=== PATIENT | female | born 1930 | race Caucasian/White ===

== ENCOUNTER 2017-04-02 01:05 | Inpatient (IN) | payer MEDICARE, BC ==
[~2017-04-02] VITALS: Ht 167.6 cm; Wt 56.8 kg
[2017-04-02] VITALS (10 sets, daily range): BP systolic 102–134; BP diastolic 47–78; PULSE 87–112; TEMP 97.3–98.2
[~2017-04-02 01:05] MED LIST: NORCO 325 MG-51 TAB PO; ZOFRAN ODT4 MG PO
[2017-04-02 01:40] LABS: BASO # 0.1 (0.0-0.2); BASO % 0.5 % (0.0-2.0); EOS # 0.3 (0.0-0.7); EOS % 3.1 % (0-4.0); GRAN # 6.1 (1.4-6.5); GRAN % 66.2 % (42.2-75.2); HEMOGLOBIN 12.2 g/dl (12.5-16.0); LYMPH # 2.1 (1.2-3.4); LYMPH % 22.4 % (20.0-51.0); MEAN CELL VOLUME 92 fl (80.0-100.0); MEAN CORPUSCULAR HEMOGLOBIN 31 pg (27.0-31.0); MEAN CORPUSCULAR HGB CONC 34 g/dl (33.0-37.0); MEAN PLATELET VOLUME 9.2 fl (7.4-10.4); MONO # 0.7 (0.1-0.6); MONO % 7.2 % (1.7-9.3); PLATELET COUNT 195 K/mm3 (130-400); RED BLOOD COUNT 3.97 M/mm3 (4.10-5.30); REDCELL DISTRIBUTION WIDTH-CV 12.6 % (11.5-14.5); WHITE BLOOD COUNT 9.3 K/mm3 (4.8-10.8)
[2017-04-02 01:44] LABS: HEMATOCRIT 36.4 % (37.0-47.0)
[2017-04-02] MEDS ORDERED: ULTRAM 50MG TAB50 MG PO (01:46)
[2017-04-02] MEDS ORDERED: REMERON30 MG PO (01:47)
[2017-04-02] MEDS ORDERED: MOBIC15 MG PO (01:48)
[2017-04-02] MEDS ORDERED: WELLBUTRIN SR150 M1 PO (01:48)
[2017-04-02] MEDS ORDERED: INDERAL 10MG10 MG PO (01:49)
[2017-04-02] MEDS ORDERED: ZOCOR 40MG40 MG PO (01:49)
[2017-04-02] MEDS ORDERED: MELAT3MGTAB PO (01:50)
[2017-04-02] MEDS ORDERED: COLACE 100100 MG/CAP PO (01:51)
[2017-04-02] MEDS ORDERED: TYLENOL 500MG500 MG PO (01:51)
[2017-04-02 01:52] LABS: ADJUSTED CALCIUM 9.2 mg/dL (8.4-10.2); ALBUMIN 4.1 gm/dL (3.5-5.0); BILIRUBIN,TOTAL 0.4 mg/dL (0.0-1.0); CALCIUM 9.3 mg/dL (8.4-10.2); CREATININE, serum 0.99 mg/dL (0.52-1.25); POTASSIUM 4.1 mmol/L (3.4-5.0); TOTAL PROTEIN 7.2 gm/dL (6.4-8.2)
[2017-04-02] MEDS ORDERED: BIOTIN5000 MCG PO (01:52)
[2017-04-02] MEDS ORDERED: MULTIPLE VITAMI1 TA5 PO (01:53)
[2017-04-02] MEDS ORDERED: ASPIRIN 81M81 MG/TA2 PO (01:56)
[2017-04-02] MEDS ORDERED: LUTEIN6 MG PO (01:57)
[2017-04-02] MEDS ORDERED: NIACIN FLUSH F400 MG PO (01:58)
[2017-04-02] MEDS ORDERED: VITAMIN C500 MG PO (01:59)
[2017-04-02] MEDS ORDERED: FISH OIL 500 M1 EAC1 PO (02:00)
[2017-04-02] MEDS ORDERED: CRANBERRY450 MG PO (02:04)
[2017-04-02] MEDS ORDERED: UROCIT-K 5540 MG/TAB PO (02:04)
[2017-04-02] MEDS ORDERED: TYROSINE PO (02:04)
[2017-04-02] MEDS ORDERED: GLUCOSAMINE/CHO1 CA1 PO (02:05)
[2017-04-02] MEDS ORDERED: GINKGO60 MG PO (02:06)
[2017-04-02] MEDS ORDERED: VITAMIN D31000 I1 PO (02:07)
[2017-04-02] MEDS ORDERED: MASON NATURAL600 MG PO (02:07)
[2017-04-02] MEDS ORDERED: FOLIC ACID 11 MG/TA1 PO (02:07)
[2017-04-02 02:54] LABS: PROTHROMBIN TIME 10.7 SECONDS (9.7-12.8)
[2017-04-02 07:56] LABS: PH 5 (5-8); SQUAMOUS EPITHELIAL 0-2 /hpf; URINE APPEARANCE Clear; URINE BACTERIA None Seen /hpf; URINE BILIRUBIN Negative (NEGATIVE); URINE BLOOD 2+ (NEGATIVE); URINE COLOR Yellow; URINE GLUCOSE Negative (NEGATIVE); URINE KETONE 1+ (NEGATIVE); URINE RBC >50 /hpf; URINE UROBILINOGEN Negative (NEGATIVE)
[2017-04-03 02:48] VITALS: BP 105/50; PULSE 101; TEMP 98
[2017-04-03 04:40] VITALS: BP 94/51; PULSE 93; TEMP 98.4
[2017-04-03 07:24] LABS: HEMOGLOBIN 8.4 g/dl (12.5-16.0)
[2017-04-03 10:05] LABS: BASO # 0.1 (0.0-0.2); BASO % 0.6 % (0.0-2.0); EOS # 0.3 (0.0-0.7); EOS % 2.6 % (0-4.0); GRAN # 7.8 (1.4-6.5); GRAN % 77.2 % (42.2-75.2); LYMPH # 1.2 (1.2-3.4); LYMPH % 11.8 % (20.0-51.0); MEAN CELL VOLUME 95 fl (80.0-100.0); MEAN CORPUSCULAR HGB CONC 32 g/dl (33.0-37.0); MEAN PLATELET VOLUME 9.5 fl (7.4-10.4); MONO # 0.7 (0.1-0.6); MONO % 7.4 % (1.7-9.3); PLATELET COUNT 148 K/mm3 (130-400); RED BLOOD COUNT 3.13 M/mm3 (4.10-5.30); REDCELL DISTRIBUTION WIDTH-CV 12.8 % (11.5-14.5)
[2017-04-03 10:06] LABS: HEMATOCRIT 29.8 % (37.0-47.0); HEMOGLOBIN 9.5 g/dl (12.5-16.0); MEAN CORPUSCULAR HEMOGLOBIN 30 pg (27.0-31.0)
[2017-04-03 11:43] VITALS: BP 108/42; PULSE 56; TEMP 97.1
[2017-04-03 14:28] VITALS: BP 120/45; PULSE 95; TEMP 98.2
[2017-04-03 17:52] VITALS: BP 99/32; PULSE 84; TEMP 97.6
[2017-04-03 21:48] VITALS: BP 106/41; PULSE 87; TEMP 97.7
[2017-04-04 05:14] VITALS: BP 127/55; PULSE 94; TEMP 98.1
[2017-04-04 07:29] LABS: BASO % 0.3 % (0.0-2.0); EOS # 0.3 (0.0-0.7); EOS % 2.9 % (0-4.0); GRAN % 79.2 % (42.2-75.2); LYMPH # 0.9 (1.2-3.4); LYMPH % 9.8 % (20.0-51.0); MEAN CELL VOLUME 94 fl (80.0-100.0); MEAN CORPUSCULAR HGB CONC 33 g/dl (33.0-37.0); MEAN PLATELET VOLUME 9.9 fl (7.4-10.4); MONO # 0.7 (0.1-0.6); MONO % 7.3 % (1.7-9.3); PLATELET COUNT 112 K/mm3 (130-400); RED BLOOD COUNT 2.52 M/mm3 (4.10-5.30); REDCELL DISTRIBUTION WIDTH-CV 12.9 % (11.5-14.5); WHITE BLOOD COUNT 8.9 K/mm3 (4.8-10.8)
[2017-04-04 07:30] LABS: HEMATOCRIT 23.8 % (37.0-47.0); HEMOGLOBIN 7.8 g/dl (12.5-16.0); MEAN CORPUSCULAR HEMOGLOBIN 31 pg (27.0-31.0)
[2017-04-04 07:39] LABS: CALCIUM 8.6 mg/dL (8.4-10.2); CREATININE, serum 0.68 mg/dL (0.52-1.25); POTASSIUM 3.6 mmol/L (3.4-5.0)
[2017-04-04 09:54] VITALS: BP 98/42; PULSE 81; TEMP 97.3
[2017-04-04 14:41] VITALS: BP 109/51; PULSE 86; TEMP 98
[2017-04-04 16:01] LABS: HEMATOCRIT 23.9 % (37.0-47.0); HEMOGLOBIN 7.8 g/dl (12.5-16.0)
[2017-04-04 18:07] VITALS: BP 101/47; PULSE 95; TEMP 98.4
[2017-04-04 20:50] VITALS: BP 156/81; PULSE 71; TEMP 98
[2017-04-05] VITALS (8 sets, daily range): BP systolic 109–124; BP diastolic 44–60; PULSE 78–96; TEMP 97.3–98.1
[2017-04-05 07:12] LABS: BASO % 0.3 % (0.0-2.0); EOS # 0.2 (0.0-0.7); EOS % 2.5 % (0-4.0); GRAN # 6.8 (1.4-6.5); GRAN % 78.3 % (42.2-75.2); HEMATOCRIT 21.4 % (37.0-47.0); LYMPH # 0.9 (1.2-3.4); MEAN CELL VOLUME 95 fl (80.0-100.0); MEAN CORPUSCULAR HEMOGLOBIN 31 pg (27.0-31.0); MEAN CORPUSCULAR HGB CONC 33 g/dl (33.0-37.0); MONO # 0.7 (0.1-0.6); MONO % 8.3 % (1.7-9.3); PLATELET COUNT 118 K/mm3 (130-400); RED BLOOD COUNT 2.26 M/mm3 (4.10-5.30); REDCELL DISTRIBUTION WIDTH-CV 12.7 % (11.5-14.5); WHITE BLOOD COUNT 8.7 K/mm3 (4.8-10.8)
[2017-04-05 07:23] LABS: CALCIUM 8.3 mg/dL (8.4-10.2); CREATININE, serum 0.69 mg/dL (0.52-1.25); POTASSIUM 3.5 mmol/L (3.4-5.0)
[2017-04-05 10:01] LABS: RETIC % 2.2 % (0.5-3.52)
[2017-04-05 10:47] LABS: FERRITIN 208 ng/mL (11-264)
[2017-04-05 11:21] LABS: TOTAL IRON BINDING CAPACITY 218 ug/dL (265-497)
[2017-04-05] MEDS ORDERED: FERROUS SU325 MG/TAB PO (13:00)
[2017-04-05] MEDS ORDERED: XARELTO10 MG PO (13:01)
[2017-04-05] MEDS ORDERED: INDERAL 10MG10 MG PO (13:03)
[2017-04-05] MEDS ORDERED: MIRALAX PA17 GM/Dose PO (21:03)
[2017-04-05] MEDS ORDERED: ZOFRAN 4MG T4 MG/TAB PO (21:05)
[2017-04-05] MEDS ORDERED: PROTONIX 40MG T40 MG PO (21:07)
[2017-04-05] MEDS ORDERED: DULCOLAX S10 MG/SUPP RC (21:10)
[2017-04-05] MEDS ORDERED: OSCAL 500 TAB500 MG PO (21:13)
[2017-04-05] MEDS ORDERED: CLARITIN 1010 MG/TAB PO (21:16)
[2017-04-05] MEDS ORDERED: LIPITOR20 MG PO (21:18)
[2017-04-05] MEDS ORDERED: SENOKOT S 50 MG1 TAB PO (21:21)
[2017-04-05] MEDS ORDERED: [UNRECOGNIZED DRUG - OTHER] MM (21:29)
[2017-04-05] MEDS ORDERED: AMBIEN 5MG TABLE5 MG PO (21:35)
[2017-04-05] MEDS ORDERED: TYLENOL 325MG325 MG PO (21:38)
[2017-04-05] MEDS ORDERED: PHENERGAN25 MG/ML IV (21:46)
== END 2017-04-05 16:00 | DRG 481 ==
LOC: COL.ER 01:05 → SURG 02:11
PROVIDERS: Nurse Practitioner; Nurse Practitioner Family; Orthopaedic Surgery; Physician Assistant
PROC: 0QS636Z Reposition Right Upper Femur with Intramedullary Internal Fixation Device, Percutaneous Approach (ICD-10-PCS; principal; 2017-04-02 14:00)
DX: S72.141A Displaced intertrochanteric fracture of right femur, initial encounter for closed fracture (principal); D62 Acute posthemorrhagic anemia; Z66 Do not resuscitate; W18.30XA Fall on same level, unspecified, initial encounter; Z85.3 Personal history of malignant neoplasm of breast; Z87.891 Personal history of nicotine dependence; R25.1 Tremor, unspecified
CPT/HCPCS: 99223-AI; 99233-AI; 99239; A9284; C1713; C9113; J1100; J2270; J2405; J2550; J2704; J2765; J3010; J7030; J7120; P9016

== ENCOUNTER 2017-04-05 15:15 | Inpatient (IN) | payer MEDICARE, BC ==
[~2017-04-05] VITALS: Ht 160 cm; Wt 50.6 kg
[~2017-04-05 15:15] MED LIST changes: +ASPIRIN 81M81 MG/TA2 PO; +BIOTIN5000 MCG PO; +COLACE 100100 MG/CAP PO; +CRANBERRY450 MG PO; +FERROUS SU325 MG/TAB PO; +FISH OIL 500 M1 EAC1 PO; +FOLIC ACID 11 MG/TA1 PO; +GINKGO60 MG PO; +GLUCOSAMINE/CHO1 CA1 PO; +INDERAL 10MG10 MG PO; +LUTEIN6 MG PO; +MASON NATURAL600 MG PO; +MELAT3MGTAB PO; +MOBIC15 MG PO; +MULTIPLE VITAMI1 TA5 PO; +NIACIN FLUSH F400 MG PO; +REMERON30 MG PO; +TYLENOL 500MG500 MG PO; +TYROSINE PO; +ULTRAM 50MG TAB50 MG PO; +UROCIT-K 5540 MG/TAB PO; +VITAMIN C500 MG PO; +VITAMIN D31000 I1 PO; +WELLBUTRIN SR150 M1 PO; +XARELTO10 MG PO; +ZOCOR 40MG40 MG PO
[2017-04-05 16:00] VITALS: BP 134/52; PULSE 95; TEMP 98.3
[2017-04-05 17:14] VITALS: BP 134/52; PULSE 95; TEMP 98.3
[2017-04-05] MEDS ORDERED: MIRALAX PA17 GM/Dose PO (21:03)
[2017-04-05] MEDS ORDERED: ZOFRAN 4MG T4 MG/TAB PO (21:05)
[2017-04-05] MEDS ORDERED: PROTONIX 40MG T40 MG PO (21:07)
[2017-04-05] MEDS ORDERED: DULCOLAX S10 MG/SUPP RC (21:10)
[2017-04-05] MEDS ORDERED: OSCAL 500 TAB500 MG PO (21:13)
[2017-04-05] MEDS ORDERED: CLARITIN 1010 MG/TAB PO (21:16)
[2017-04-05] MEDS ORDERED: LIPITOR20 MG PO (21:18)
[2017-04-05] MEDS ORDERED: SENOKOT S 50 MG1 TAB PO (21:21)
[2017-04-05] MEDS ORDERED: [UNRECOGNIZED DRUG - OTHER] MM (21:29)
[2017-04-05] MEDS ORDERED: AMBIEN 5MG TABLE5 MG PO (21:35)
[2017-04-05] MEDS ORDERED: TYLENOL 325MG325 MG PO (21:38)
[2017-04-05] MEDS ORDERED: PHENERGAN25 MG/ML IV (21:46)
[2017-04-06 06:01] VITALS: BP 124/51; PULSE 89; TEMP 98.7
[2017-04-06 12:49] LABS: BASO % 0.4 % (0.0-2.0); EOS # 0.3 (0.0-0.7); EOS % 2.2 % (0-4.0); GRAN # 9.6 (1.4-6.5); GRAN % 84.3 % (42.2-75.2); LYMPH # 0.8 (1.2-3.4); LYMPH % 7.4 % (20.0-51.0); MEAN CELL VOLUME 93 fl (80.0-100.0); MEAN CORPUSCULAR HGB CONC 33 g/dl (33.0-37.0); MEAN PLATELET VOLUME 9.6 fl (7.4-10.4); MONO # 0.6 (0.1-0.6); MONO % 5.1 % (1.7-9.3); PLATELET COUNT 195 K/mm3 (130-400); RED BLOOD COUNT 3.27 M/mm3 (4.10-5.30); WHITE BLOOD COUNT 11.4 K/mm3 (4.8-10.8)
[2017-04-06 12:50] LABS: HEMATOCRIT 30.5 % (37.0-47.0); HEMOGLOBIN 10.1 g/dl (12.5-16.0); MEAN CORPUSCULAR HEMOGLOBIN 31 pg (27.0-31.0)
[2017-04-06 12:59] LABS: CALCIUM 9.3 mg/dL (8.4-10.2); CREATININE, serum 0.73 mg/dL (0.52-1.25); POTASSIUM 3.6 mmol/L (3.4-5.0)
[2017-04-06 16:19] VITALS: BP 109/44; PULSE 102; TEMP 97.7
[2017-04-07 06:45] VITALS: BP 137/82; PULSE 96; TEMP 99
[2017-04-07 16:17] VITALS: BP 110/51; PULSE 104; TEMP 97.7
[2017-04-08 05:40] VITALS: BP 128/55; PULSE 82; TEMP 98.5
[2017-04-08 07:42] LABS: HEMATOCRIT 30.7 % (37.0-47.0); HEMOGLOBIN 9.9 g/dl (12.5-16.0)
[2017-04-08 17:13] VITALS: BP 104/54; PULSE 94; TEMP 97.6
[2017-04-09 06:04] VITALS: BP 114/38; PULSE 92; TEMP 98.1
[2017-04-09 18:14] VITALS: BP 101/52; PULSE 93; TEMP 98.5
[2017-04-10 03:50] VITALS: BP 133/48; PULSE 86; TEMP 97.8
[2017-04-10 19:22] VITALS: BP 128/64; PULSE 92; TEMP 97.9
[2017-04-11 06:00] VITALS: BP 132/55; PULSE 87; TEMP 97.9
[2017-04-11 16:00] VITALS: BP 113/48; PULSE 90; TEMP 97
[2017-04-12 05:24] VITALS: BP 124/54; PULSE 96; TEMP 97.6
[2017-04-12 18:15] VITALS: BP 102/55; PULSE 93; TEMP 98
[2017-04-13 05:13] VITALS: BP 135/53; PULSE 82; TEMP 97.6
[2017-04-13 16:58] VITALS: BP 104/43; PULSE 87; TEMP 97.5
[2017-04-14 04:14] VITALS: BP 131/57; PULSE 86; TEMP 98.1
[2017-04-14 16:54] VITALS: BP 123/47; PULSE 87; TEMP 98.2
[2017-04-14 20:30] VITALS: BP 121/53; PULSE 89; TEMP 98.4
[2017-04-15 04:34] VITALS: BP 123/52; PULSE 78; TEMP 98.6
[2017-04-15 07:20] LABS: HEMATOCRIT 34.2 % (37.0-47.0); HEMOGLOBIN 10.6 g/dl (12.5-16.0)
[2017-04-15 16:15] VITALS: BP 116/45; PULSE 86; TEMP 97.6
[2017-04-16 05:58] VITALS: BP 124/57; PULSE 92; TEMP 97.6
[2017-04-16 18:30] VITALS: BP 122/55; PULSE 92; TEMP 97.5
[2017-04-17 06:23] VITALS: BP 145/60; PULSE 80; TEMP 97.4
[2017-04-17 18:43] VITALS: BP 148/87; PULSE 75; TEMP 98.4
[2017-04-18 05:02] VITALS: BP 111/47; PULSE 75; TEMP 97.9
[2017-04-18 16:06] VITALS: BP 110/51; PULSE 85; TEMP 98.4
[2017-04-19 03:09] VITALS: BP 146/73; PULSE 88; TEMP 98.8
[2017-04-19 04:59] VITALS: BP 131/62; PULSE 82; TEMP 98.1
[2017-04-19 16:35] VITALS: BP 127/55; PULSE 90; TEMP 98.4
[2017-04-20 04:35] VITALS: BP 125/54; PULSE 78; TEMP 97.8
[2017-04-20 17:09] VITALS: BP 120/49; PULSE 81; TEMP 98
[2017-04-21 05:11] VITALS: BP 141/56; PULSE 83; TEMP 97.7
[2017-04-21 18:10] VITALS: BP 118/65; PULSE 89; TEMP 97.6
[2017-04-22 05:10] VITALS: BP 156/63; PULSE 77; TEMP 98.5
[2017-04-22 16:23] VITALS: BP 122/55; PULSE 82; TEMP 98.2
[2017-04-23 05:59] VITALS: BP 145/60; PULSE 84; TEMP 98
[2017-04-23 15:09] VITALS: BP 110/46; PULSE 87; TEMP 98.2
[2017-04-24 05:56] VITALS: BP 149/66; PULSE 80; TEMP 97.9
[2017-04-24] MEDS ORDERED: [UNRECOGNIZED DRUG - OTHER] TP (09:06)
[2017-04-24] MEDS ORDERED: FERROUS SU325 MG/TAB PO (09:08)
[2017-04-24] MEDS ORDERED: XARELTO10 MG PO (09:08)
[2017-04-24] MEDS ORDERED: ULTRAM 50MG TAB50 MG PO (09:08)
== END 2017-04-24 13:15 | disposition home health service (06) | DRG 561 ==
PROVIDERS: Family Medicine; Internal Medicine
DX: S72.141D Displaced intertrochanteric fracture of right femur, subsequent encounter for closed fracture with routine healing (principal); Z85.3 Personal history of malignant neoplasm of breast; Z87.891 Personal history of nicotine dependence; G25.0 Essential tremor; Z66 Do not resuscitate; D50.0 Iron deficiency anemia secondary to blood loss (chronic); W18.30XD Fall on same level, unspecified, subsequent encounter
CPT/HCPCS: 99222-AI; 99232-AI; 99239

== ENCOUNTER → 2018-02-14 | Outpatient (CLI) | payer MEDICARE, BC ==
[~2018-02-14] MED LIST changes: +AMBIEN 5MG TABLE5 MG PO; +CLARITIN 1010 MG/TAB PO; +DULCOLAX S10 MG/SUPP RC; +LIPITOR20 MG PO; +MIRALAX PA17 GM/Dose PO; +OSCAL 500 TAB500 MG PO; +PHENERGAN25 MG/ML IV; +PROTONIX 40MG T40 MG PO; +SENOKOT S 50 MG1 TAB PO; +TYLENOL 325MG325 MG PO; +ZOFRAN 4MG T4 MG/TAB PO; +[UNRECOGNIZED DRUG - OTHER] MM; +[UNRECOGNIZED DRUG - OTHER] TP
== END ==
LOC: MC.RAD 14:00
DX: Z12.31 Encounter for screening mammogram for malignant neoplasm of breast (principal); Z85.3 Personal history of malignant neoplasm of breast; Z98.890 Other specified postprocedural states

== ENCOUNTER 2018-09-24 14:30 | Emergency (ER) | payer MEDICARE, BC ==
[~2018-09-24] VITALS: Ht 160 cm; Wt 52.3 kg
[2018-09-24 14:34] VITALS: TEMP 97.4
[2018-09-24 15:13] LABS: BASO % 0.2 % (0.0-2.0); EOS % 0.1 % (0-4.0); GRAN % 93.2 % (42.2-75.2); HEMATOCRIT 39.4 % (37.0-47.0); HEMOGLOBIN 13.2 g/dl (12.5-16.0); LYMPH # 0.7 (1.2-3.4); LYMPH % 3.7 % (20.0-51.0); MEAN CELL VOLUME 89 fl (80.0-100.0); MEAN CORPUSCULAR HEMOGLOBIN 30 pg (27.0-31.0); MEAN CORPUSCULAR HGB CONC 34 g/dl (33.0-37.0); MEAN PLATELET VOLUME 8.9 fl (7.4-10.4); MONO # 0.4 (0.1-0.6); MONO % 2.1 % (1.7-9.3); PLATELET COUNT 256 K/mm3 (130-400); RED BLOOD COUNT 4.42 M/mm3 (4.10-5.30); REDCELL DISTRIBUTION WIDTH-CV 12.8 % (11.5-14.5)
[2018-09-24 15:25] LABS: BILIRUBIN,TOTAL 0.3 mg/dL (0.0-1.0); C-REACTIVE PROTEIN 0.8 mg/dL (0.0-0.9); CALCIUM 9.4 mg/dL (8.4-10.2); CREATININE, serum 1.05 (0.52-1.25); POTASSIUM 4.2 mmol/L (3.4-5.0); TOTAL PROTEIN 7.8 gm/dL (6.4-8.2)
[2018-09-24 17:41] LABS: COLLECTION METHOD CLEAN CATCH
[2018-09-24 17:47] LABS: PH 7 (5-8); SQUAMOUS EPITHELIAL 0-2 /hpf; URINE APPEARANCE Clear; URINE BACTERIA None Seen /hpf; URINE BILIRUBIN Negative (NEGATIVE); URINE BLOOD Negative (NEGATIVE); URINE COLOR Yellow; URINE GLUCOSE Negative (NEGATIVE); URINE KETONE 1+ (NEGATIVE); URINE LEUKOCYTE ESTERASE Negative (NEGATIVE); URINE NITRATE Negative (NEGATIVE); URINE PROTEIN(semi-quant) Negative (NEGATIVE); URINE UROBILINOGEN Negative (NEGATIVE)
[2018-09-24] MEDS ORDERED: CEFTIN 250250 MG/TAB PO (18:08)
[2018-09-24 18:40] VITALS: BP 98/70; PULSE 88
== END 2018-09-24 18:40 | disposition home or self-care (01) ==
LOC: COL.ER 14:30
PROVIDERS: Emergency Medicine
DX: N20.1 Calculus of ureter (principal); K21.9 Gastro-esophageal reflux disease without esophagitis; E78.5 Hyperlipidemia, unspecified; Z90.89 Acquired absence of other organs; Z90.49 Acquired absence of other specified parts of digestive tract; Z90.710 Acquired absence of both cervix and uterus; Z85.3 Personal history of malignant neoplasm of breast
CPT/HCPCS: A4216; J0696; J2405; J2550; J7030; Q9967

== ENCOUNTER 2019-02-06 10:44 | Emergency (ER) | payer MEDICARE, BC ==
[~2019-02-06] VITALS: Ht 160 cm; Wt 53.6 kg
[~2019-02-06 10:44] MED LIST changes: +CEFTIN 250250 MG/TAB PO
[2019-02-06 11:16] VITALS: TEMP 97.6
[2019-02-06 12:47] LABS: BASO % 0.5 % (0.0-2.0); EOS # 0.1 (0.0-0.7); EOS % 1.3 % (0-4.0); GRAN # 5.7 (1.4-6.5); GRAN % 76.3 % (42.2-75.2); HEMATOCRIT 41.9 % (37.0-47.0); HEMOGLOBIN 13.9 g/dl (12.5-16.0); LYMPH % 13.6 % (20.0-51.0); MEAN CELL VOLUME 90 fl (80.0-100.0); MEAN CORPUSCULAR HEMOGLOBIN 30 pg (27.0-31.0); MEAN CORPUSCULAR HGB CONC 33 g/dl (33.0-37.0); MEAN PLATELET VOLUME 9.3 fl (7.4-10.4); MONO # 0.6 (0.1-0.6); MONO % 7.9 % (1.7-9.3); PLATELET COUNT 246 K/mm3 (130-400); RED BLOOD COUNT 4.65 M/mm3 (4.10-5.30); REDCELL DISTRIBUTION WIDTH-CV 13.2 % (11.5-14.5)
[2019-02-06 12:57] LABS: ALBUMIN 4.3 gm/dL (3.5-5.0); BILIRUBIN,TOTAL 0.4 mg/dL (0.0-1.0); C-REACTIVE PROTEIN 0.7 mg/dL (0.0-0.9); CALCIUM 9.7 mg/dL (8.4-10.2); CREATININE, serum 0.78 (0.52-1.25); POTASSIUM 4.1 mmol/L (3.4-5.0)
[2019-02-06 13:11] LABS: COLLECTION METHOD CLEAN CATCH
[2019-02-06 13:17] LABS: PH 6 (5-8); SQUAMOUS EPITHELIAL 0-2 /hpf; URINE APPEARANCE Clear; URINE BACTERIA None Seen /hpf; URINE BILIRUBIN Negative (NEGATIVE); URINE BLOOD 1+ (NEGATIVE); URINE COLOR Straw; URINE GLUCOSE Negative (NEGATIVE); URINE KETONE Negative (NEGATIVE); URINE LEUKOCYTE ESTERASE Negative (NEGATIVE); URINE NITRATE Negative (NEGATIVE); URINE PROTEIN(semi-quant) Negative (NEGATIVE); URINE UROBILINOGEN Negative (NEGATIVE)
[2019-02-06 15:30] VITALS: BP 149/75; PULSE 82
== END 2019-02-06 15:30 | disposition home or self-care (01) ==
LOC: COL.ER 10:44
PROVIDERS: Physician Assistant
DX: K59.00 Constipation, unspecified (principal); M54.5 Low back pain; K21.9 Gastro-esophageal reflux disease without esophagitis; Z90.710 Acquired absence of both cervix and uterus; Z90.89 Acquired absence of other organs; Z88.0 Allergy status to penicillin; Z88.5 Allergy status to narcotic agent; Z85.3 Personal history of malignant neoplasm of breast; E78.5 Hyperlipidemia, unspecified
CPT/HCPCS: J3010; J7030